=== PATIENT | female | born 1955 | race Caucasian/White ===

== ENCOUNTER → 2024-07-14 | Day surgery (SDC) | payer MEDICARE, OTHER ==
[2024-07-07 10:01] LABS: BASOPHILS % 0.2 % (0.0-1.0); EOSINOPHILS % 0.2 % (0.0-6.0); HEMATOCRIT 33.7 % (34.2-44.1); HEMOGLOBIN 9.8 g/dL (12.0-16.0); LYMPHOCYTES # (AUTO) 1.2 (1.0-3.2); LYMPHOCYTES % 12.3 % (18.0-39.1); MEAN CORPUSCULAR HGB CONC 29.1 g/dL (31-35); MEAN CORPUSCULAR VOLUME 106.6 fL (81-99); MONOCYTES # (AUTO) 1.2 (0.2-0.8); MONOCYTES % 12.2 % (4.4-11.3); NEUTROPHILS # (AUTO) 7.1 (2.1-6.9); NEUTROPHILS % 74.8 % (38.7-80.0); PLATELET COUNT 256 x10e3/uL (140-360); RED BLOOD COUNT 3.16 x10e6/uL (3.6-5.1); WHITE BLOOD COUNT 9.56 x10e3/uL (4.8-10.8)
[~2024-07-14] MED LIST: ASPIRIN81 MG PO; CLARITIN10 MG PO; FENTANYL CITRATE/PF 100MCG/2 ML INJ ONE; FIBER PO; LACTATED RINGER'S 1,000 ML ONE; LEVOCETIRIZINE D5 MG PO; LIDOCAINE HCL 2% LOCAL INJ 5 ML SDV VIAL INJ ONE; LISINOPRIL2.5 MG PO; MELOXICAM15 MG PO; METOPROLOL SUCC25 MG PO; MIRALAX17 GM PO; NEXIUM 24HR20 M1 PO; PRAVASTATIN SOD10 MG PO; PROBIOTIC & AC1 EACH PO; PROPOFOL IV EMULSION 10 MG/ML 20 ML VIAL ONE; RANOLAZINE ER500 MG PO; ZETIA10 MG PO; [UNRECOGNIZED DRUG - OTHER] PO; [UNRECOGNIZED DRUG - OTHER] PO
[2024-07-14 13:19] LABS: BASOPHILS # (AUTO) 0.1 (0.0-0.1); BASOPHILS % 0.9 % (0.0-1.0); EOSINOPHILS # (AUTO) 0.1 (0.0-0.4); HEMATOCRIT 43.8 % (34.2-44.1); LYMPHOCYTES # (AUTO) 0.7 (1.0-3.2); LYMPHOCYTES % 11.6 % (18.0-39.1); MEAN CORPUSCULAR HGB CONC 29.7 g/dL (31-35); MEAN CORPUSCULAR VOLUME 104.5 fL (81-99); MONOCYTES # (AUTO) 0.4 (0.2-0.8); MONOCYTES % 7.5 % (4.4-11.3); NEUTROPHILS # (AUTO) 4.6 (2.1-6.9); NEUTROPHILS % 77.8 % (38.7-80.0); PLATELET COUNT 321 x10e3/uL (140-360); RED BLOOD COUNT 4.19 x10e6/uL (3.6-5.1); RED CELL DISTRIBUTION WIDTH 16.4 % (11.7-14.4); WHITE BLOOD COUNT 5.88 x10e3/uL (4.8-10.8)
[2024-07-14 15:56] VITALS: TEMP 97
[2024-07-14 16:40] VITALS: BP 120/74; PULSE 65; RESP 16; O2SAT 97
== END | disposition home or self-care (01) ==
LOC: OR 12:38
PROVIDERS: ATTEND Internal Medicine Gastroenterology
DX: D64.9 Anemia, unspecified (principal); D12.5 Benign neoplasm of sigmoid colon; K29.50 Unspecified chronic gastritis without bleeding; K31.89 Other diseases of stomach and duodenum; K20.90 Esophagitis, unspecified without bleeding; K21.9 Gastro-esophageal reflux disease without esophagitis; K28.9 Gastrojejunal ulcer, unspecified as acute or chronic, without hemorrhage or perforation; K64.8 Other hemorrhoids; Z71.3 Dietary counseling and surveillance; I10 Essential (primary) hypertension; Z71.89 Other specified counseling; I25.10 Atherosclerotic heart disease of native coronary artery without angina pectoris; I49.9 Cardiac arrhythmia, unspecified; E78.5 Hyperlipidemia, unspecified; M54.50 Low back pain, unspecified; N20.0 Calculus of kidney; Z88.4 Allergy status to anesthetic agent; Z88.1 Allergy status to other antibiotic agents; Z01.810 Encounter for preprocedural cardiovascular examination; Z01.812 Encounter for preprocedural laboratory examination; Z79.82 Long term (current) use of aspirin; Z79.1 Long term (current) use of non-steroidal anti-inflammatories (NSAID); Z79.899 Other long term (current) drug therapy
CPT/HCPCS: 36415 ×2; 43239; 45385; 85025 ×2; 88305; 88342; 93005; J2470; J2704; J3010; J7121; 45378; J2003

== ENCOUNTER → 2024-08-14 | Outpatient (REF) | payer MEDICARE, OTHER ==
[~2024-08-14] MED LIST changes: -FENTANYL CITRATE/PF 100MCG/2 ML INJ ONE; -LACTATED RINGER'S 1,000 ML ONE; -LIDOCAINE HCL 2% LOCAL INJ 5 ML SDV VIAL INJ ONE; -PROPOFOL IV EMULSION 10 MG/ML 20 ML VIAL ONE
== END ==
LOC: DX 08:00
PROVIDERS: ATTEND Nurse Practitioner
DX: D50.8 Other iron deficiency anemias (principal)
CPT/HCPCS: 74250

== ENCOUNTER → 2024-10-05 | Outpatient (REF) | payer MEDICARE, OTHER | LOC: MAMMO 09:09 | PROVIDERS: ATTEND Internal Medicine | DX: Z12.31 Encounter for screening mammogram for malignant neoplasm of breast (principal) | CPT/HCPCS: 77067 ==

== ENCOUNTER 2025-04-17 19:40 | Emergency (ER) | payer MEDICARE, OTHER ==
[~2025-04-17] VITALS: Ht 165.1 cm; Wt 77.1 kg
[2025-04-17 19:59] VITALS: TEMP 98.1
[2025-04-17] MEDS: ACETAMINOPHEN 325 MG TAB PO ONE (20:40)
[2025-04-17 21:14] VITALS: PULSE 64; RESP 19
[2025-04-17] MEDS ORDERED: ULTRAM 50MG50 MG PO (21:39)
[2025-04-17 21:56] VITALS: BP 128/62; PULSE 70; RESP 18; TEMP 98.3; O2SAT 98
== END 2025-04-17 22:00 | disposition home or self-care (01) ==
LOC: ER 19:58
DX: S62.316A Displaced fracture of base of fifth metacarpal bone, right hand, initial encounter for closed fracture (principal); W01.0XXA Fall on same level from slipping, tripping and stumbling without subsequent striking against object, initial encounter; Y93.K1 Activity, walking an animal; Y92.89 Other specified places as the place of occurrence of the external cause; I10 Essential (primary) hypertension; E78.00 Pure hypercholesterolemia, unspecified; M19.09 Primary osteoarthritis, other specified site; Z85.41 Personal history of malignant neoplasm of cervix uteri
CPT/HCPCS: 99283